=== PATIENT | female | born 1945 | race Caucasian/White ===

== ENCOUNTER → 2019-05-19 | Outpatient (CLI) | payer OTHER ==
[~2019-05-19] MED LIST: LOSARTAN POTASS50 MG; PLAVIX75 MG; ZIAC 2.5-6.25 M1 TAB
== END | disposition home or self-care (01) ==
LOC: MAMO-SONO 08:45 → SONOGRAMA 08:51
DX: N95.0 Postmenopausal bleeding (principal)

== ENCOUNTER 2019-06-06 10:34 | Outpatient (CLI) | payer OTHER | END 2019-06-06 10:36 | disposition home or self-care (01) | LOC: RAD 10:34 | DX: I10 Essential (primary) hypertension (principal) ==

== ENCOUNTER 2019-06-13 10:15 | Emergency (ER) | payer OTHER ==
[~2019-06-13] VITALS: Ht 157.5 cm; Wt 69.4 kg
[2019-06-13] MEDS ORDERED: ZETIA10 MG (11:07)
== END 2019-06-13 13:42 | disposition home or self-care (01) ==
LOC: ER 10:15
DX: I10 Essential (primary) hypertension (principal)

== ENCOUNTER 2019-06-23 06:33 | Day surgery (SDC) | payer OTHER ==
[~2019-06-23 06:33] MED LIST changes: +ZETIA10 MG
[2019-06-23] MEDS ORDERED: TYLENOL325 MG PO (10:17)
== END 2019-06-23 15:11 | disposition home or self-care (01) ==
LOC: CIR.AMB 06:33
DX: N84.0 Polyp of corpus uteri (principal)

== ENCOUNTER 2019-10-20 08:56 | Outpatient (CLI) | payer OTHER ==
[~2019-10-20 08:56] MED LIST changes: +TYLENOL325 MG PO
== END 2019-10-20 09:08 | disposition home or self-care (01) ==
LOC: NUCLEAR 08:56
DX: M81.0 Age-related osteoporosis without current pathological fracture (principal)

== ENCOUNTER 2022-07-11 07:28 | Outpatient (CLI) | payer OTHER | END 2022-07-11 07:30 | disposition home or self-care (01) | LOC: NUCLEAR 07:28 | PROVIDERS: ATTEND Internal Medicine Cardiovascular Disease | DX: I25.9 Chronic ischemic heart disease, unspecified (principal); Z88.6 Allergy status to analgesic agent; Z91.040 Latex allergy status | CPT/HCPCS: 78452; 93017; A9500; J0153 ==

== ENCOUNTER 2023-01-03 08:16 | Outpatient (CLI) | payer OTHER | END 2023-01-03 08:30 | disposition home or self-care (01) | LOC: NUCLEAR 08:16 | PROVIDERS: ATTEND Internal Medicine Cardiovascular Disease | DX: G45.9 Transient cerebral ischemic attack, unspecified (principal) ==

== ENCOUNTER 2023-08-11 08:25 | Outpatient (CLI) | payer OTHER | END 2023-08-14 08:03 | disposition home or self-care (01) | LOC: RAD 08:25 | PROVIDERS: ATTEND Internal Medicine | DX: M25.511 Pain in right shoulder (principal) ==

== ENCOUNTER 2023-11-09 10:28 | Outpatient (CLI) | payer OTHER | END 2023-11-09 10:32 | disposition home or self-care (01) | LOC: SONOGRAMA 10:28 | PROVIDERS: ATTEND Physical Medicine & Rehabilitation Sports Medicine | DX: M75.111 Incomplete rotator cuff tear or rupture of right shoulder, not specified as traumatic (principal) ==

== ENCOUNTER 2024-08-08 07:37 | Outpatient (CLI) | payer OTHER | END 2024-08-08 07:47 | disposition home or self-care (01) | LOC: MRI 07:37 | PROVIDERS: ATTEND Neuromusculoskeletal Medicine & OMM | DX: I77.71 Dissection of carotid artery (principal) | CPT/HCPCS: 70549 ==

== ENCOUNTER 2024-08-14 07:33 | Outpatient (CLI) | payer OTHER | END 2024-08-14 07:40 | disposition home or self-care (01) | LOC: MAMO-SONO 07:33 | PROVIDERS: ATTEND Obstetrics & Gynecology | DX: N64.4 Mastodynia (principal); N60.19 Diffuse cystic mastopathy of unspecified breast ==

== ENCOUNTER 2024-10-06 08:09 | Outpatient (CLI) | payer OTHER | END 2024-10-06 08:21 | disposition home or self-care (01) | LOC: TOM 08:09 | PROVIDERS: ATTEND Neuromusculoskeletal Medicine & OMM | DX: I65.23 Occlusion and stenosis of bilateral carotid arteries (principal) | CPT/HCPCS: 70498 ==

== ENCOUNTER 2025-02-02 08:27 | Outpatient (CLI) | payer OTHER | END 2025-02-02 08:36 | disposition home or self-care (01) | LOC: SONOGRAMA 08:27 | PROVIDERS: ATTEND Student in an Organized Health Care Education/Training Program | DX: N81.3 Complete uterovaginal prolapse (principal); R33.9 Retention of urine, unspecified ==

== ENCOUNTER 2025-05-01 10:12 | Outpatient (CLI) | payer OTHER | END 2025-05-01 10:20 | disposition home or self-care (01) | LOC: RAD 10:12 | PROVIDERS: ATTEND Internal Medicine | DX: E72.9 Disorder of amino-acid metabolism, unspecified (principal); I11.9 Hypertensive heart disease without heart failure ==